=== PATIENT | female | born 1995 | race Two or more races ===

== ENCOUNTER 2024-12-19 16:01 | Outpatient (CLI) | payer OTHER, MEDICAID, SELFPAY ==
[2024-12-19] VITALS (8 sets, daily range): BP systolic 110–117; BP diastolic 61–68; PULSE 66–83; RESP 16–97; TEMP 36.9; O2SAT 99–100; BMI 35.3
--- NOTE | 2024-12-19 16:26 | XR_ITS ---
Examination: Biophysical profile, ultrasound Date and time of exam: December 19, 2024, 1642 hours INDICATIONS: Decreased movement beginning 2 weeks ago, labor evaluation, nonstress test, diagnosis cholestasis of Technique: Multiple transabdominal sonographic images of the pelvis abdomen obtained. Attention is directed to the breathing movement, gross body movement, amniotic fluid volume and tone. Findings: Amniotic fluid index 9.3 cm Total biophysical profile is 8 of 8. breathing movement is 2. Gross body movement is 2. tone is 2. Qualitative amniotic fluid volume is 2 Impression: Biophysical profile is 8 of 8.
== END 2024-12-19 17:15 | disposition home or self-care (01) ==
LOC: S4S1 16:09 → S4SX 16:10
PROVIDERS: PCP Specialist; Referring Provider Specialist; Visit Provider Specialist
DX: O26.649 Intrahepatic cholestasis of pregnancy, unspecified trimester (principal); Z3A.00 Weeks of gestation of pregnancy not specified
CPT/HCPCS: 59025; 76819

== ENCOUNTER 2024-12-20 08:10 | Inpatient (IN) | payer OTHER, MEDICAID, SELFPAY ==
[2024-12-20 08:31] VITALS: BMI 36.3
[2024-12-20 08:50] VITALS: BP 126/77; PULSE 71
--- NOTE | 2024-12-20 09:44 | PD.LDHP ---
Documentation for date of: 12/20/24 OB Labor/Induct. HPI History of Present Illness : 4 History of present illness: H and P dictated on STAT line in [facility] #9. [id number] Labs Labs: Negative: RPR, Hepatitis B, Rubella Titre, HIV, Gonorrhea and Group Beta Strep and Unknown: Herpes Type 1 and Herpes Type 2 Meds Home Medications and Allergies Home Medications ?Medication ?Instructions ?Recorded ?Confirmed ?Type vits no.130-ferrous fum 1 tab PO QDAY 10/08/22 12/20/24 History 27 mg iron-folic acid 800 mcg tablet ( Vitamin) Allergies Allergy/AdvReac Type Severity Reaction Status Date / Time No Known Allergies Allergy Verified 12/20/24 09:35 OB Exam Physical Exam Vital signs: Pulse BP 71 126/77 12/20/24 08:50 12/20/24 08:50
[2024-12-20 10:08] LABS: Basophils # (Auto) 0.0 Thou/mm3 (0.0-0.2); Basophils % (Auto) 0 % (0-2.5); Eosinophils # (Auto) 0.1 Thou/mm3 (0.0-0.5); Eosinophils % (Auto) 1 % (0-10); Hematocrit 35.6 % (36.0-46.0); Hemoglobin 11.6 g/dL (12.0-16.0); Immature Granulocytes Auto 0.18 Thou/mm3 (0.00-0.00); Lymphocytes # (Auto) 2.0 Thou/mm3 (1.0-4.8); Lymphocytes % (Auto) 22 % (10-50); Mean Corpuscular HGB Conc 32.6 g/dl (31.0-37.0); Mean Corpuscular Hemoglobin 22.6 pg (25.0-35.0); Mean Corpuscular Volume 69 fL (80-100); Monocytes # (Auto) 0.9 Thou/mm3 (0.0-0.8); Monocytes % (Auto) 10 % (0-12); Neutrophils # (Auto) 6.0 Thou/mm3 (1.8-7.7); Neutrophils % (Auto) 65 % (37-80); Nucleated Red Blood Cell # 0.00 Thou/mm3 (0.00-0.00); Nucleated Red Blood Cell % 0 /100 WBC (0); Platelet Count 205 Thou/mm3 (140-440); RDW Standard Deviation 36.5 fL (36.4-46.3); Red Blood Count 5.13 Miln/mm3 (4.00-5.20); White Blood Count 9.2 Thou/mm3 (3.6-11.0)
[2024-12-20 10:53] LABS: Syphilis Nonreactive (Nonreactive)
[2024-12-20 11:00] VITALS: BP 113/73; PULSE 80
[2024-12-20 14:52] VITALS: BP 113/71; PULSE 75
[2024-12-20 16:38] LABS: Path Review Blood Smear Sent to Pathologist
[2024-12-20 18:16] VITALS: BP 113/70; PULSE 70
[2024-12-20 19:50] VITALS: RESP 16; TEMP 36.8
[2024-12-20] MEDS: RINGERS LACTATED 1000 ML 1,000 ML 100 ML IV (23:50)
[2024-12-21] VITALS (52 sets, daily range): BP systolic 90–147; BP diastolic 51–88; PULSE 54–91; RESP 14–21; TEMP 36.6–37.6; O2SAT 96–100
--- NOTE | 2024-12-21 00:03 | XR_ITS ---
Examination: Complete OB ultrasound greater than 14 weeks Date and time of exam: December 21, 2024, 0040 hours Preop labor induction, pelvic contractions today Findings: Viable intrauterine single fetus with single amniotic sac presentation cephalic Cardiac motion 144 bpm Placenta anterior grade 2 Umbilical cord insertion 3 vessels seen Amniotic fluid index 13.5 cm spine anterior Cervix 4.0 cm Ovaries obscured by the fetus. Composite estimated gestational age based on BPD, head circumference, abdominal circumference, femur length is 38 weeks 5 days Estimated weight 3575 g. Survey of intracranial anatomy, spinal anatomy, abdominal anatomy, four-chamber heart performed with no abnormalities identified. Impression: Viable intrauterine gestation in cephalic presentation.
--- NOTE | 2024-12-21 01:45 | PRELIM_ITS ---
Obstetric ultrasound; December 21, 2024 at 0041 hours Clinical history: Presentation, EFW, NARESH. No prior study is available for comparison. Findings: There is a gravid uterus with a live fetus in cephalic presentation of mean gestational age 38 weeks and 5 days. cardiac activity is present at a heart rate of 144 beats per minute. The placenta is anterior in location, maturity grade 2. There is no evidence of placenta previa or retroplacental h emorrhage. Amniotic fluid index of 13.5 cm. The cervical length measures 4.1 cm. The internal os is closed. weight is 3575 grams +/- 529 grams The ovaries are not visualized. Impression: Gravid uterus with a single live fetus in cephalic presentation of mean gestational age 38 weeks 5 days. Amniotic fluid is adequate with Amniotic fluid index of 13.5 cm. Other findings as described above. Report Electronically Signed By: Maurice Nagy 12/21/2024 1:45:01 AM [EST]
--- NOTE | 2024-12-21 03:43 | PD.LDPN ---
Documentation for date of: 12/21/24 OB Labor Progress Note Pain Control Comments: Epidural Pelvic Exam Dilation (cm): 3 Effacement (%): 50 station: -4 Amniotic membrane status: Intact Contractions Monitor mode: External Contraction frequency: 2-4 Contraction pattern: Coupling Contraction intensity: Mild Status status: Category l Assessment and Plan Comments: Induction of labor ongoing History of Present Illness HPI H and P dictated on STAT line in [facility] #9. [id number]
[2024-12-21] MEDS: RINGERS LACTATED 1000 ML 1,000 ML 100 ML IV (07:56)
--- NOTE | 2024-12-21 08:58 | ESHP_ITS ---
RE: AVIVA PHILLIPS : 1995 DATE OF ADMISSION: 12/19/2024 PRE-ADMISSION HISTORY AND PHYSICAL This is a 29-year-old, 4, para 3-0-0-3 with due date of 01/02 with an intrauterine at 38 weeks 0 days on 12/19, who presents for induction of labor for macrosomia. Her most recent ultrasound on 12/08 showed overall growth at the 94th percentile and cephalic. The estimated weight on 12/08 was 7 pounds 11 ounces. ALLERGIES: NO KNOWN DRUG ALLERGIES. MEDICATIONS: 1. multivitamin 1 p.o. daily. 2. Ferrous sulfate 325 mg 1 p.o. every other day. PAST MEDICAL HISTORY: Beta thalassemia trait, endometriosis, atypical chest pain, gallstones, cholestasis of in a prior , acne, irritable bowel syndrome, latent tuberculosis treated in 2003 and asthma. FAMILY HISTORY: Hypertension, diabetes, hypothyroidism. OBSTETRIC HISTORY: In 2015, 40-week normal vaginal delivery, 3-zqunh-1-ounce male, complicated by cholestasis of . On 08/10/2019, 38 weeks normal vaginal delivery, 6-jjfkw-83-ounce female, complicated by cholestasis of . In 11/2022, 40-week normal vaginal delivery, 8 pounds 2 ounces female, complicated by cholestasis of . REVIEW OF SYSTEMS: Cholecystectomy. PHYSICAL EXAMINATION: VITAL SIGNS: Blood pressure 113/63, heart rate 88, respirations 18, temperature is 98.6. HEENT: Oropharynx and sclerae are clear. LUNGS: Clear to auscultation bilaterally. HEART: Regular rate and rhythm. ABDOMEN: Gravid, term size, consistent with estimated weight 9 pounds. PELVIC: See RN notes. EXTREMITIES: Nontender. SKIN: No gross rashes or lesions. NEUROLOGIC: No focal deficit. ASSESSMENT AND PLAN: Intrauterine at 38 weeks and 0 days on 12/19, macrosomia, induction of labor. Anticipate spontaneous vaginal delivery. Informed consent was obtained. The patient was made aware of the risks, complications, alternatives and benefits of operative vaginal delivery and delivery and agrees with these modes of delivery if indicated. DT: 08:27:07 TT: 08:49:00 Ref: [id number] - TID: [id number] [facility]
--- NOTE | 2024-12-21 12:31 | PD.LDPN ---
Documentation for date of: 12/21/24 OB Labor Progress Note Pain Control Comments: Epidural Pelvic Exam Dilation (cm): 10 Effacement (%): 100 station: -4 Amniotic membrane status: Bulging Comments: Shoulder presentation Contractions Monitor mode: External Contraction frequency: 2-4 Contraction pattern: Coupling Contraction intensity: Strong Status status: Category ll Assessment and Plan Comments: Malpresentation Emergent delivery I explained to the patient that the shoulder which is the presenting part is not well applied to the cervix and rupture of membranes could result in umbilical cord prolapse. The presenting shoulder is ballotable. The Conway catheter is draining so we know the bladder is empty. Artificial rupture to attempt to manipulate the head to vertex could risk umbilical cord prolapse. I explained to the patient the risks, complications, alternatives and benefits to the recommended delivery and she agrees.
[2024-12-21] MEDS: FAMOTIDINE INJ 10 MG/ML VIAL 2 ML 20 MG IV (12:39)
[2024-12-21] MEDS: ceFAZolin/D5W 2 GM IV 2 GM/100 ML BAG IV (12:39)
--- NOTE | 2024-12-21 12:44 | ESDS_ITS ---
DS: Providers Provider Date of admission: 12/20/24 08:10 Primary care physician: Physician No Primary/Family Admitting Provider: Nirav Hampton MD Attending Provider on Admission: Nirav Hampton MD Attending Provider on DC: Nirav Hampton MD Discharging Provider: Nirav Hampton MD DS: Diagnosis Problem List Completed Was Problem List Reviewed/Reconciled?: Yes Summary/Hosp Course Brief History: H and P dictated on STAT line in [facility] #9. [id number] Peripartum Data Delivery Method: Low Transverse Time Spent with Patient Time attestation: Total time spent providing and/or coordinating discharge services: Exam Vital Signs Temp Pulse Resp BP 97.8 F 91 16 104/78 12/21/24 07:30 12/21/24 12:21 12/20/24 19:50 12/21/24 12:21 Discharge Plan Plan Patient Disposition: HOME (Self Care) Patient condition on transfer: Stable Prescriptions/Referrals Prescriptions/Med Rec: New hydrocodone-acetaminophen 5-325 mg tablet 1 tab PO Q6H MDD 4 PRN (Reason: pain) Qty: 20 0RF ibuprofen 600 mg tablet 600 mg PO Q6H PRN (Reason: fever or pain) Qty: 30 0RF docusate sodium 100 mg tablet 100 mg PO BID PRN (Reason: constipation) Qty: 30 1RF Continued Vitamin 27 mg iron- 800 mcg Tablet 1 tab PO QDAY Discontinued ibuprofen 800 mg tablet 800 mg PO Q6H MDD 4 PRN (Reason: pain) Qty: 90 0RF docusate sodium [Colace] 100 mg capsule 100 mg PO BID Qty: 60 0RF lanolin 50 % ointment 1 applic topical TID PRN (Reason: skin irritation) Qty: 15 0RF Tucks (witch sekou) 50 % pads, medicated 1 pad topical BID Qty: 100 0RF ferrous sulfate 325 mg (65 mg iron) tablet,delayed release (DR/EC) 325 mg PO BID Qty: 60 1RF Referrals: No Primary/Family,Physician [Primary Care Provider] Patient/Caregiver Discharge Instructions Discharge Activity: activity as tolerated Other Discharge Activity Instructions:: Follow up office 1 weeks. Print Language: Niuean Stand Alone Forms: Lisa Award Info., Patient Portal Info Letter Discharge Order Discharge Orders: Discharge (Routine); Ordered 12/23/24 Ordered By: Nirav Hampton Planned Discharge Date 12/23/24
--- NOTE | 2024-12-21 12:44 | PD.GYNPROC ---
Operative Note - RADIO DISC JOCKEY Procedure Date of procedure: 12/21/24 Procedure Performed: Primary low-transverse section via Pfannenstiel skin incision Indication: Intrauterine at 38 weeks and 2 days Suspected macrosomia Induction of labor Second stage labor Fetus moved from cephalic to shoulder presentation Malpresenation Pre-Op diagnosis: Intrauterine at 38 weeks and 2 days Suspected macrosomia Induction of labor Second stage labor Fetus moved from cephalic to shoulder presentation Malpresentation Post-Op diagnosis: Intrauterine at 38 weeks and 2 days Suspected macrosomia Induction of labor Second stage labor Malpresentation: Shoulder Partial placental abruption Anesthesia type: Epidural Procedure description: After proper informed consent was obtained and the patient was made aware of the risks, complications, alternatives and benefits of the proposed procedure she was taken to the operating room where epidural anesthesia was found to be adequate. She was prepped and draped in the usual sterile fashion. A timeout was performed.? A Pfannenstiel skin incision was made with the scalpel and carried through to the underlying layer of fascia with the Bovie. The fascia was nicked in the midline incision and the incision was extended bilaterally with the Bovie. The inferior aspect of the fascial incision was grasped with Keith clamps elevated and the underlying rectus muscle dissected off with the Bovie. The superior aspect the fascial incision was grasped with Keith clamps elevated and the underlying rectus muscle dissected off with the Bovie. The rectus muscles were in the midline. The peritoneum was grasped between 2 Jalloh clamps and entered sharply with the Metzenbaum scissors. The peritoneum was extended superiorly and inferiorly with good visualization of the bladder. The vesicouterine peritoneum was incised transversely bladder flap created digitally. A [place] blade was inserted. A low transverse incision was made in the uterus with a scapel and the incision was extended digitally. The shoulder was elevated and then the head. The head was maneuvered to the low transverse incision. The mouth and nose were suctioned with the bulb suction. The shoulder and body delivered atraumatically. The cord was clamped after 30 second delayed cord clamping and the cord was cut.? The was handed off to the waiting Pediatric staff, cord blood was collected for lab testing. The placenta was removed complete and intact. A partial placenta abruption with retroplacenta hematoma noted. The uterus was exteriorized and cleared of all clots and debris. The uterine incision was closed with #1-0 chromic catgut suture in a running interlocking fashion. A second layer of the same suture was used to imbricate the first layer and obtain excellent hemostasis. The vesicouterine peritoneum was closed with 2-0 chromic catgut suture in a running fashion. The firm uterus was returned to the abdomen. The gutters were cleared of all clots and debris. The peritoneum was closed with 0 chromic catgut suture in running fashion. The rectus muscle was closed with 0 chromic catgut suture. The fascia was closed with 0 Vicryl beginning at each angle and ending in the center in a running fashion. The subcutaneous tissue was irrigated with warmed normal saline solution and found to be hemostatic. The subcutaneous tissue was closed with 2-0 chromic catgut suture in a running fashion. The skin was closed with 4-0 Monocryl. A Dermabond Prineo dressing was applied and a sterile pressure dressing was applied.? She tolerated the procedure well. Counts were correct. I discussed with the patient the nature of her condition, intraoperative findings and expectation for recovery all? questions answered. Specimen: none (Pt and wanted to take the placenta home. ) Estimated blood loss (ml): 900 Findings: Live baby girl Apgars see RN notes Weight see RN notes Placenta removed complete and intact Partial placental abruption Uterus initially atonic but responded to uterotonic's Ovaries and fallopian tubes grossly within normal limits Bloody amniotic fluid Complications: other (Uterine atony) Surgical staff Ivet Young, PHILIP Dickey, ANNA MARIE Diagnosis Problem List Completed Was Problem List Reviewed/Reconciled?: Yes
--- NOTE | 2024-12-21 15:12 | PD.LDDELS ---
Data ([place]) Data Hx Section: No : 4 Term: 3 : 0 Livin Abortions: Spontaneous & Theraputic: 0 Delivery Data ([place]) Labor Data Initiation of labor: Induction Induction/Augmentation Agent: Cytotec-PO and Cervidil ROM date: 12/21/24 ROM time: 11:45 Amniotic membrane rupture type: Spontaneous Amniotic fluid description: Clear Delivery Data EDC: 01/02/25 EDC calculated by:: LMP/early US confirmation Onset of labor date: 12/21/24 Onset of labor time: 06:00 Complete dilation date: 12/21/24 [place] delivery date: 12/21/24 delivery time: 12:56 Gestational age (weeks): 38 Gestational age (days): 2 Placenta delivery date: 12/21/24 Placenta delivery time: 12:56 Delivered by: Nirav Hampton Delivery nurse: Artur Ramirez RN [place] nurse: Laith SIERRA RN & Artur Calvillo RN Keg Raiser at delivery: No Support person(s) at delivery: fob Delivery Method Delivery method: Low Transverse Presentation: Shoulder position: other (shoulder) Anesthesia Type Anesthesia Type: Epidural Anesthesia type: Epidural Placenta Placenta delivery description: Manual Removal Cord blood sent to lab: Yes cord blood collection: Cord Blood Type Episiotomy Episiotomy description: None EBL Estimated blood loss (ml): 900 Umbilical Cord cord description: 3 Vessels Complications Complications: Uterine atony Placental abruption [place] Data ([place]rison) Data order: 1 [place]'s gender: Female weight (gms): 8 lb 8.157 oz Weight (pounds): 8 lbs and 8.2 ozs [place] length: 20.47 in 1 minute: 8 5 minutes: 9
[2024-12-21] MEDS: KETOROLAC INJ 30 MG/ML VIAL IVP ×2 (16:52→22:37)
[2024-12-21 17:42] LABS: Basophils # (Auto) 0.0 Thou/mm3 (0.0-0.2); Basophils % (Auto) 0 % (0-2.5); Eosinophils # (Auto) 0.0 Thou/mm3 (0.0-0.5); Eosinophils % (Auto) 0 % (0-10); Hematocrit 34.9 % (36.0-46.0); Hemoglobin 11.3 g/dL (12.0-16.0); Immature Granulocytes Auto 0.07 Thou/mm3 (0.00-0.00); Lymphocytes # (Auto) 0.9 Thou/mm3 (1.0-4.8); Lymphocytes % (Auto) 6 % (10-50); Mean Corpuscular HGB Conc 32.4 g/dl (31.0-37.0); Mean Corpuscular Hemoglobin 22.5 pg (25.0-35.0); Mean Corpuscular Volume 69 fL (80-100); Monocytes # (Auto) 0.6 Thou/mm3 (0.0-0.8); Monocytes % (Auto) 4 % (0-12); Neutrophils # (Auto) 15.2 Thou/mm3 (1.8-7.7); Neutrophils % (Auto) 90 % (37-80); Nucleated Red Blood Cell # 0.00 Thou/mm3 (0.00-0.00); Nucleated Red Blood Cell % 0 /100 WBC (0); Platelet Count 181 Thou/mm3 (140-440); RDW Standard Deviation 35.8 fL (36.4-46.3); Red Blood Count 5.03 Miln/mm3 (4.00-5.20); White Blood Count 16.9 Thou/mm3 (3.6-11.0)
[2024-12-21] MEDS: SIMETHICONE 80 MG CHEW PO (20:29)
[2024-12-21] MEDS: OXYTOCIN in NS 20 units 20 UNIT/1,000 ML BAG 125 UNIT IV (20:29)
[2024-12-22 00:15] VITALS: BP 118/72; PULSE 67; RESP 20; TEMP 37.2; O2SAT 97
[2024-12-22 03:55] VITALS: BP 124/77; PULSE 66; RESP 20; TEMP 37.1; O2SAT 97
[2024-12-22] MEDS: KETOROLAC INJ 30 MG/ML VIAL IVP (04:22)
[2024-12-22] MEDS: SIMETHICONE 80 MG CHEW PO ×3 (04:23→13:43)
[2024-12-22] MEDS: RINGERS LACTATED 1000 ML 1,000 ML 100 ML IV (04:23)
--- NOTE | 2024-12-22 07:29 | ESPR_ITS ---
RE: AVIVA PHILLIPS : 1995 DATE OF SERVICE: 12/22/2024 SUBJECTIVE: Post op day #1. Patient denies any problem or complaints. OBJECTIVE: Vital Signs: Blood pressure 124/77, heart rate 66, respirations 20, temperature is 98.8. Pulse ox is 97% on room air. Lungs: Clear to auscultation bilaterally. Heart: Regular rate and rhythm. Abdomen: Fundus is firm, dressing dry and intact. Extremities: Nontender. Hemoglobin pre delivery is 11.6, post delivery is 11.3. ASSESSMENT: Postoperative day #1 status post delivery. PLAN: DC IV, remove dressing, encourage ambulation, support, possible discharge home tomorrow. DT: 07:06:56 TT: 07:27:00 Ref: [id number] - TID: [id number]
[2024-12-22 08:05] VITALS: BP 111/71; PULSE 71; RESP 18; TEMP 37.7; O2SAT 95
[2024-12-22] MEDS: DOCUSATE SOD 100 MG CAPSULE PO (08:49)
[2024-12-22] MEDS: HYDROcodone/APAP 5/325 TABLET 2 TAB PO (08:57)
[2024-12-22 12:00] VITALS: BP 110/70; PULSE 76; RESP 18; TEMP 36.7; O2SAT 96
[2024-12-22] MEDS: IBUPROFEN TAB 400 MG TABLET 800 MG PO ×2 (13:38→21:47)
[2024-12-22] MEDS: Milk Of Magnesia Susp 30 ML UDC PO (15:30)
[2024-12-22] MEDS: HYDROcodone/APAP 5/325 TABLET 1 TAB PO (18:36)
[2024-12-22 20:50] VITALS: BP 117/71; PULSE 79; RESP 18; TEMP 37.2; O2SAT 97
[2024-12-23] MEDS: SIMETHICONE 80 MG CHEW PO (00:04)
[2024-12-23 03:45] VITALS: BP 106/68; PULSE 67; RESP 18; TEMP 36.8; O2SAT 97
[2024-12-23] MEDS: HYDROcodone/APAP 5/325 TABLET 1 TAB PO ×2 (05:56→09:59)
[2024-12-23] MEDS: Milk Of Magnesia Susp 30 ML UDC PO (05:56)
--- NOTE | 2024-12-23 07:31 | ESPR_ITS ---
RE: AVIVA PHILLIPS : 1995 DATE OF SERVICE: 12/23/2024 SUBJECTIVE: Postop day # 2. Patient denies any problem or complaints. She is voiding, she is ambulating, she is tolerating diet, she is passing flatus. She denies any excessive vaginal bleeding. She denies any dizziness or lightheadedness. She denies any chest pain, palpitation, shortness of breath, or lower extremity pain. OBJECTIVE: Vital Signs: Blood pressure is 106/68, heart rate 67, respiration 18, temperature is 98.3, pulse ox is 97% on room air. Lungs: Clear to auscultation bilaterally. Heart: Regular rate and rhythm. Abdomen: Nondistended, incision clear and intact. Fundus is firm. Extremities: Nontender. ASSESSMENT AND PLAN: Postop day # 1 status post delivery. Plan is discharge home, discharge instructions given, follow up in the office in 1 week. DT: 07:00:55 TT: 07:29:00 Ref: [id number] - TID: [id number]
[2024-12-23 08:32] VITALS: BP 105/68; PULSE 75; RESP 18; TEMP 36.6; O2SAT 96
[2024-12-23] MEDS: DOCUSATE SOD 100 MG CAPSULE PO (09:45)
== END 2024-12-23 10:25 | disposition home or self-care (01) | DRG 786 ==
LOC: S4SX 12-21 13:09 → S4NX 12-21 13:23
PROVIDERS: Admitting Provider Specialist; Visit Provider Specialist
PROC: 10D00Z1 Extraction of Products of Conception, Low, Open Approach (ICD-10-PCS; CPT 59514; principal; 2024-12-21 12:30)
DX: O36.63X0 Maternal care for excessive fetal growth, third trimester, not applicable or unspecified (principal); O45.93 Premature separation of placenta, unspecified, third trimester; O32.2XX0 Maternal care for transverse and oblique lie, not applicable or unspecified; O62.2 Other uterine inertia; Z37.0 Single live birth; Z3A.38 38 weeks gestation of pregnancy; Z90.49 Acquired absence of other specified parts of digestive tract
CPT/HCPCS: 36415; 76805; 85025; 86780; 86850; 86900; 86901; A4217; A4314; A4649; J0689; J1885; J2210; J2371; J2590; J2795; J3010; J3490; J7120; S0191; A9270